=== PATIENT | female | born 1990 | race American Indian/Alaskan Native ===

== ENCOUNTER 2019-03-13 07:06 | Emergency (ER) | payer OTHER ==
[2019-03-13 07:28] VITALS: BP 132/69
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
== END 2019-03-13 09:36 | disposition home or self-care (01) ==
LOC: ED 07:06
DX: S16.1XXA Strain of muscle, fascia and tendon at neck level, initial encounter (principal); M54.5 Low back pain; V89.2XXA Person injured in unspecified motor-vehicle accident, traffic, initial encounter; Y93.89 Activity, other specified; Y92.410 Unspecified street and highway as the place of occurrence of the external cause; Y99.8 Other external cause status
CPT/HCPCS: 99282

== ENCOUNTER 2019-03-26 05:38 | Emergency (ER) | payer SELFPAY ==
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
--- NOTE | 2019-03-26 07:23 | XRay Report ---
THORACIC SPINE HISTORY: Upper thoraci pain; injury COMPARISON: None. TECHNIQUE: 3 view(s) of the thoracic spine obtained. FINDINGS: Vertebrae: Normal alignment. No fracture or significant abnormality. Disc Spaces:No significant abnormality. Paraspinous Soft Tissues:No significant abnormality. Additional findings: None. IMPRESSION: 1. No significant abnormality of the thoracic spine. Signer Name: Jabari Staples MD Signed: 03/26/2019 7:18 AM Workstation Name: [id number]
--- NOTE | 2019-03-26 07:23 | XRay Report ---
CERVICAL SPINE, AP AND LATERAL VIEWS 03/26/2019 INDICATION / CLINICAL INFORMATION: upper back pain/injury. COMPARISON: None available. FINDINGS: No fracture. Disc interspaces and bony alignment are normal. Prevertebral soft tissues appear normal. Signer Name: Ziggy Ferreira MD Signed: 03/26/2019 7:18 AM Workstation Name: [id number]
[2019-03-26 07:58] VITALS: BP 106/63
== END 2019-03-26 08:00 | disposition home or self-care (01) ==
LOC: ED 05:38
DX: S44.91XA Injury of unspecified nerve at shoulder and upper arm level, right arm, initial encounter (principal); Z98.890 Other specified postprocedural states; Z79.899 Other long term (current) drug therapy; X58.XXXA Exposure to other specified factors, initial encounter; Y93.89 Activity, other specified; Y92.89 Other specified places as the place of occurrence of the external cause; Y99.8 Other external cause status
CPT/HCPCS: 72040; 72072

== ENCOUNTER 2020-02-26 11:12 | Emergency (ER) | payer OTHER ==
--- NOTE | 2020-02-26 11:33 | Emergency Department Report ---
Blank Doc - Documentation Documentation: 29-year-old female that presents with fever, body aches, cough, loss of smell. tachyacrdia in triage This initial assessment/diagnostic orders/clinical plan/treatment(s) is/are subject to change based on patient's health status, clinical progression and re- assessment by fellow clinical providers in the ED. Further treatment and workup at subsequent clinical providers discretion. Patient/guardians urged not to elope from the ED as their condition may be serious if not clinically assessed and managed. Initial orders include: 1- Patient sent to [facility] for further evaluation and treatment 2- cxr
--- NOTE | 2020-02-26 13:27 | Emergency Department Report ---
Chief Complaint: Upper Respiratory Infection Stated Complaint: C/FEVER/DIARRHEA/NO SMELL/HEADACHE Time Seen by Provider: 02/26/20 11:32 - HPI History of Present Illness: Patient is a 29-year-old female presents emergency room with complaints of diarrhea and headache that began yesterday. She states that she has a very slight occasional dry cough. She states that she had one episode of vomiting but has not had any vomiting today and is tolerating p.o. intake without difficulty. She states that she has generalized body aches. She denies any fever, shortness of breath, chest pain, abdominal pain. She denies any known sick contacts or recent travel. She denies any past medical history. No allergies to medications. Last menstrual cycle February 14. she states that she really just presented to the ED because she wanted coronavirus testing. Vitals are normal Triage provider wrote that patient is tachycardic, this is incorrect, she has never been tachycardic while in the ED A repeat set of her vitals are performed once again in exam room and she still r emains having completely normal vitals On exam: Non toxic appearing, no acute distress atraumatic, normocephalic normal appearance of the eyes, PERRL, EOMI, no periorbital edema or ecchymosis moist mucus membranes, normal oropharynx, normal TMs and canals bilaterally regular heart rate and rhythm, no gallops, no rubs, no murmurs breath sounds are clear bilaterally, no w/r/r, no stridor, no respiratory distress, no accessory muscle use A&O x4, no focal neuro deficit skin is warm, dry, intact Patient is presenting with viral-like symptoms Her vitals are completely normal She has no abnormality on physical examination as documented in chart She is presenting with the symptoms during COVID-19 pandemic, discussed the possibility of COVID-19 with patient, discussed self quarantine, discussed outpatient testing, discussed very strict return precautions Patient has no clinical signs of dehydration, otitis, pharyngitis, sinusitis, pneumonia She is well-appearing She does report that she mostly just came to receive COVID-19 testing but we do not do this in the emergency department advised pt Please increase your fluid intake over the next several days. May take Tylenol as needed for fever or body aches. May take [id number] cold symptom relief medication such as Mucinex or TheraFlu. Follow-up with a primary care doctor for reexamination. Return to emergency room immediately for any new or worsening symptoms including but not limited to difficulty breathing, shortness of breath, severe chest pain, unable to tolerate by mouth intake, etc. Please self quarantine for 2 weeks from the onset of your symptoms. Please do not go out in public. If you are around others at home please wear a mask. If you need to cough or sneeze please do so in a napkin and immediately throw it away and immediately wash your hands. Wash your hands frequently. Wipe everything down. Recommend for you to get COVID-19 testing, may have this done at primary care doctor, health department, [facility] testing center. Medical screening examination performed and there is no threat to life or limb at this time - Exam Vital Signs: Vital Signs 02/26/20 11:34 Temperature 98 F Pulse Rate 70 Respiratory 16 Rate Blood Pressure 113/61 [Right] O2 Sat by Pulse 100 Oximetry MSE screening note: Focused history and physical exam performed. ED Medical Decision Making - Lab Data Vital Signs 02/26/20 02/26/20 11:34 13:40 Temperature 98 F 98.7 F Pulse Rate 70 61 Respiratory 16 20 Rate Blood Pressure 113/61 125/78 [Right] O2 Sat by Pulse 100 99 Oximetry ED Disposition for MSE Clinical Impression: Viral syndrome Disposition: Z-07 MED SCREENING EXAM-LEFT Is pt being admited?: No Does the pt Need Aspirin: No Condition: Stable Instructions: COVID-19, Viral Syndrome (ED) Additional Instructions: Please increase your fluid intake over the next several days. May take Tylenol as needed for fever or body aches. May take [id number] cold symptom relief medication such as Mucinex or TheraFlu. Follow-up with a primary care doctor for reexamination. Return to emergency room immediately for any new or worsening symptoms including but not limited to difficulty breathing, shortness of breath, severe chest pain, unable to tolerate by mouth intake, etc. Please self quarantine for 2 weeks from the onset of your symptoms. Please do not go out in public. If you are around others at home please wear a mask. If you need to cough or sneeze please do so in a napkin and immediately throw it away and immediately wash your hands. Wash your hands frequently. Wipe everything down. Recommend for you to get COVID-19 testing, may have this done at primary care doctor, health department, [facility] testing center. Referrals: HOLLY MIGULE MD [Staff Physician] - 2-3 Days [facility] [Provider Group] - 2-3 Days [facility], [LAB/CONTRACT] - 2-3 Days Forms: Work/School Release Form(ED) Time of Disposition: 13:26 Print Language: CROATIAN
[2020-02-26 13:41] VITALS: BP 125/78
== END 2020-02-26 12:30 | disposition left against medical advice (07) ==
LOC: ED 11:12
DX: R19.7 Diarrhea, unspecified (principal); Z53.21 Procedure and treatment not carried out due to patient leaving prior to being seen by health care provider

== ENCOUNTER 2021-01-01 07:57 | Emergency (ER) | payer SELFPAY ==
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
== END 2021-01-01 08:33 | disposition left against medical advice (07) ==
LOC: ED 07:57

== ENCOUNTER 2021-04-16 12:51 | Emergency (ER) | payer SELFPAY ==
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
== END 2021-04-16 14:45 | disposition home or self-care (01) ==
LOC: ED 12:51
DX: S39.012A Strain of muscle, fascia and tendon of lower back, initial encounter (principal); T24.212A Burn of second degree of left thigh, initial encounter; T24.232A Burn of second degree of left lower leg, initial encounter; M79.18 Myalgia, other site; V43.52XA Car driver injured in collision with other type car in traffic accident, initial encounter; Y93.89 Activity, other specified; Y92.89 Other specified places as the place of occurrence of the external cause; Y99.8 Other external cause status
CPT/HCPCS: 99281